=== PATIENT | female | born 1945 | race Hispanic/Latino ===

== ENCOUNTER 2018-02-11 11:48 | Emergency (ER) | payer MEDICARE, MEDICAID ==
--- NOTE | 2018-02-11 12:30 | RAD ---
RIGHT SHOULDER TWO VIEWS: History: Patient slipped in bathroom. Shoulder pain. FINDINGS: There is an anterior shoulder dislocation. There are arthritic changes of the shoulder seen. IMPRESSION: Anterior shoulder dislocation. POS: [facility]
[2018-02-11] MEDS ORDERED: HYDROcodone/Acetaminophen 5/325 mg Tablet ONE (12:36)
[2018-02-11] MEDS ORDERED: Morphine 4 MG/ML VIAL ONE (13:36)
[2018-02-11] MEDS ORDERED: Ondansetron ODT 4 MG TAB ONE (13:38)
--- NOTE | 2018-02-11 13:46 | CT ---
BRAIN CT WITHOUT IV CONTRAST: History: 72-year-old female with history of head injury after slipping in the bathroom. FINDINGS: No focal mass or midline shift. No intra or extraaxial hemorrhage. Mild sinus mucosal changes. IMPRESSION: No significant acute intracranial process. No mass or bleed. Minimal right supraorbital scalp swellin g. Mild sinus mucosal changes. POS: [facility]
--- NOTE | 2018-02-11 13:49 | CT ---
CT FACIAL BONES: Date: 02-11-18 Comparison: None. History: Injury. Slipped in the bathroom. Technique: Serial axial CT imaging at 2.5 mm intervals through the facial bones without contrast. Cor onal and sagittal reformatted imaging obtained. FINDINGS: Incompletely imaged soft tissue swelling is seen in the right supraorbital region. The frontal sinuses, ethmoid air cells, sphenoid sinuses, and maxillary sinuses demonstrate no signif icant mucosal disease. There is mild mucosal disease within the posterior ethmoid air cells on the le ft, the sphenoid sinus on the left and the maxillary sinus on the right. The nasal bones, the zygomatic arches, and the pterygoid plates are intact. The temporomandibular joints appear normally located. The mandible appears intact. There is moderate degenerative change involving the atlantoaxial interspace. The orbital floor and the medial orbital wall is intact bilaterally. No displaced facial bone fracture is noted. IMPRESSION: 1. No evidence for acute facial bone fracture. POS: [facility]
--- NOTE | 2018-02-11 13:59 | RAD ---
RIGHT HUMERUS 2 VIEWS: Date: 02/11/18 HISTORY: Injury. Fall. COMPARISON: None. FINDINGS: There is an anterior subcoracoid shoulder dislocation. Advanced degenerative changes of the elbow. IMPRESSION: Anterior subcoracoid shoulder dislocation. POS: [facility]
--- NOTE | 2018-02-11 14:01 | RAD ---
RIGHT ELBOW 4 VIEWS: Date: 02/11/18 HISTORY: Injury. Fall. COMPARISON: None. FINDINGS: There is moderate narrowing of the radiocapitellar and mild narrowing of the ulnar trochlear joint. N o acute displaced fracture is appreciated. No significant joint effusion. Osteophytes are present at the radial head, as well as of the radial notch at the ulna. IMPRESSION: No acute fracture. POS: [facility]
--- NOTE | 2018-02-11 14:21 | RAD ---
RIGHT SHOULDER TWO VIEWS: History: Shoulder injury. FINDINGS: There is anterior shoulder dislocation present. Bones appear demineralized. IMPRESSION: Anterior shoulder dislocation. POS: [facility]
--- NOTE | 2018-02-11 18:48 | RAD ---
FRONTAL VIEW RIGHT SHOULDERS: 02/11/2018 PROVIDED CLINICAL HISTORY: Post reduction. COMPARISON: Exam done earlier on the same date. FINDINGS: The proximal humerus more normally overlies the glenoid but the glenohumeral relationship is suboptim ally evaluated in the absence of a scapular Y or axillary view. Acromioclavicular joint osteoarthros is is redemonstrated. IMPRESSION: As above. POS: [facility]
== END 2018-02-11 17:30 | disposition home or self-care (01) ==
LOC: ERS 11:48
DX: S43.014A Anterior dislocation of right humerus, initial encounter (principal); E11.9 Type 2 diabetes mellitus without complications; E78.5 Hyperlipidemia, unspecified; Z79.899 Other long term (current) drug therapy; Z79.4 Long term (current) use of insulin; W19.XXXA Unspecified fall, initial encounter
CPT/HCPCS: 23650; 70450; 70486; 96374; 99152; 99153; J2270; Q0162

== ENCOUNTER 2018-04-12 07:15 | Outpatient (CLI) | payer MEDICARE, MEDICAID ==
--- NOTE | 2018-04-12 09:14 | MRI ---
MRI OF THE RIGHT SHOULDER WITHOUT CONTRAST: Indication: Right shoulder pain with history of right shoulder dislocation two months ago after slipp ing and falling. Technique: Multiplanar, multisequence MR images were obtained of the right shoulder without intraarti cular or IV contrast. Comparison: Radiographs of the right shoulder dated 02-01-18. FINDINGS: There are complete full thickness, full width tears of the supraspinatus, infraspinatus and subscapul malu with retraction of the tendons to the level of the glenoid head. There is moderate muscular atro phy of the supraspinatus and infraspinatus. There is mild muscular atrophy of the subscapularis. The teres minor is intact. There is a high grade partial thickness tear involving the intraarticular chevy ps tendon. The biceps tendon is medially subluxed within the mid to superior aspects of the bicipital groove. There is prominent tendinosis of the intraarticular course of the biceps tendon. There is pr ominent degenerative fraying of the superior glenoid labrum and biceps anchor. The visualized aspects of the inferior glenohumeral labral ligamentous complex appear roughly intact. There is some increas ed T2 signal seen involving the anterior aspect of the axillary pouch, likely reflective of some resi dual grade I sprain. Glenohumeral articular surface is preserved. There is no Hill-Sachs deformity de monstrated. There is moderate AC joint osteoarthrosis. There is a type II acromion. No os acromiale i s present. IMPRESSION: 1. Massive rotator cuff tear with moderate supraspinatus and infraspinatus muscular atrophy and mild subscapularis muscular atrophy. 2. Medial subluxation of the proximal long head of the biceps tendon with severe biceps tendinosis an d a high grade partial thickness tear of the intraarticular course of the biceps tendon. 3. Prominent degenerative fraying of the superior glenoid labrum and biceps anchor. 4. Some increased T2 signal involving the anterior aspect of the axillary pouch in the region of the anterior band of the inferior glenohumeral ligament, likely related to a grade I sprain. 5. Moderate AC joint osteoarthrosis. POS: [facility]
== END 2018-04-12 07:16 | disposition home or self-care (01) ==
LOC: BICMRI 07:15
PROVIDERS: ATTEND Orthopaedic Surgery
DX: M25.511 Pain in right shoulder (principal); M75.101 Unspecified rotator cuff tear or rupture of right shoulder, not specified as traumatic; M62.511 Muscle wasting and atrophy, not elsewhere classified, right shoulder; S43.081A Other subluxation of right shoulder joint, initial encounter; M75.21 Bicipital tendinitis, right shoulder; M19.011 Primary osteoarthritis, right shoulder; R93.7 Abnormal findings on diagnostic imaging of other parts of musculoskeletal system

== ENCOUNTER 2018-08-02 15:02 | Outpatient (CLI) | payer MEDICARE, MEDICAID ==
--- NOTE | 2018-08-02 16:11 | RAD ---
RIGHT HIP 2 VIEWS: Date: 08/03/17 HISTORY: Right hip pain for 3 weeks. FINDINGS/IMPRESSION: No fracture, dislocation, or other significant acute osseous abnormality. Mild degenerative changes. POS: [facility]
--- NOTE | 2018-08-02 16:12 | RAD ---
RIGHT KNEE 3 VIEWS: Date: 08/03/17 HISTORY: Anterior right knee pain without injury, pain for 3 weeks. FINDINGS/IMPRESSION: Mild tricompartment degenerative changes. Mild anterior nonspecific soft tissue swelling. No fracture , dislocation, or other significant acute osseous abnormality. POS: [facility]
--- NOTE | 2018-08-02 16:13 | RAD ---
LEFT HIP 2 VIEWS: Date: 08/03/17 HISTORY: Left hip pain for 3 weeks without injury. FINDINGS/IMPRESSION: Mild degenerative changes. No fracture, dislocation, or other acute process. POS: [facility]
== END 2018-08-02 15:03 | disposition home or self-care (01) ==
LOC: BICRAD 15:02
PROVIDERS: ATTEND Family Medicine
DX: M25.561 Pain in right knee (principal); M25.551 Pain in right hip; M25.552 Pain in left hip; M17.11 Unilateral primary osteoarthritis, right knee; M16.0 Bilateral primary osteoarthritis of hip

== ENCOUNTER 2018-08-19 10:07 | Outpatient (CLI) | payer MEDICARE, MEDICAID | END 2018-08-19 10:08 | disposition home or self-care (01) | LOC: BICMAMMO 10:07 | PROVIDERS: ATTEND Family Medicine | DX: Z12.31 Encounter for screening mammogram for malignant neoplasm of breast (principal); R92.1 Mammographic calcification found on diagnostic imaging of breast; N64.89 Other specified disorders of breast | CPT/HCPCS: 77063; 77067 ==

== ENCOUNTER 2019-11-20 11:39 | Outpatient (CLI) | payer MEDICARE, MEDICAID ==
--- NOTE | 2019-11-20 13:08 | MMO ---
Bilateral MAMMO Bilat Screen [facility]. CLINICAL HISTORY: Patient is 74 years old and is seen for screening. The patient has no family history of breast cancer. The patient has no personal history of cancer. VIEWS: The views performed were: bilateral craniocaudal with tomosynthesis and bilateral mediolateral oblique with tomosynthesis. FILMS COMPARED: The present examination has been compared to prior imaging studies performed at [facility] on 09/14/2014, 09/16/2015, 09/21/2016 and 08/19/2018. This study has been interpreted with the assistance of computer-aided detection. MAMMOGRAM FINDINGS: There are scattered fibroglandular densities. Finding 1: The left breast mass with calcification , likely fibroadenoma is stable. Finding 2: Benign calcifications are noted bilaterally. There are no suspicious masses, suspicious calcifications, or new areas of architectural distortion. IMPRESSION: THERE IS NO MAMMOGRAPHIC EVIDENCE OF MALIGNANCY. A ROUTINE FOLLOW-UP MAMMOGRAM IN 1 YEAR IS RECOMMENDED. THE RESULTS OF THIS EXAM WERE SENT TO THE PATIENT. ACR BI-RADS Category 2 - Benign finding MAMMOGRAPHY NOTE: 1. A negative mammogram report should not delay a biopsy if a dominant of clinically suspicious mass is present. 2. Approximately 10% to 15% of breast cancers are not detected by mammography. 3. Adenosis and dense breasts may obscure an underlying neoplasm. Reported by: SARAH TAVARES MD Electonically Signed: [id number]
== END 2019-11-20 11:40 | disposition home or self-care (01) ==
LOC: BICMAMMO 11:39
PROVIDERS: ATTEND Family Medicine
DX: Z12.31 Encounter for screening mammogram for malignant neoplasm of breast (principal)
CPT/HCPCS: 36415; 77063; 77067; 80053; 83036; 85025

== ENCOUNTER 2020-09-24 10:13 | Outpatient (CLI) | payer MEDICARE, MEDICAID | END 2020-09-24 10:14 | disposition home or self-care (01) | LOC: BICMAMMO 10:13 | PROVIDERS: ATTEND Family Medicine | DX: M85.89 Other specified disorders of bone density and structure, multiple sites (principal) | CPT/HCPCS: 77080 ==

== ENCOUNTER 2021-06-28 10:31 | Outpatient (CLI) | payer MEDICARE, MEDICAID | END 2021-06-28 10:32 | disposition home or self-care (01) | LOC: BICMAMMO 10:31 | PROVIDERS: ATTEND Family Medicine | DX: Z12.31 Encounter for screening mammogram for malignant neoplasm of breast (principal) | CPT/HCPCS: 77063; 77067 ==

== ENCOUNTER 2022-10-18 11:12 | Outpatient (CLI) | payer OTHER, MEDICAID | END 2022-10-18 11:13 | disposition home or self-care (01) | LOC: BICRAD 11:12 | PROVIDERS: ATTEND Family Medicine | DX: M54.50 Low back pain, unspecified (principal); E11.9 Type 2 diabetes mellitus without complications; M47.816 Spondylosis without myelopathy or radiculopathy, lumbar region | CPT/HCPCS: 36415; 72100; 80053; 80061; 81001; 83036; 85025; 87077; 87086; 87186 ==

== ENCOUNTER 2024-01-23 14:14 | Outpatient (CLI) | payer OTHER, MEDICAID | END 2024-01-23 14:15 | disposition home or self-care (01) | LOC: BICMAMMO 14:14 | PROVIDERS: ATTEND Family Medicine | DX: Z13.820 Encounter for screening for osteoporosis (principal); M85.89 Other specified disorders of bone density and structure, multiple sites; N95.9 Unspecified menopausal and perimenopausal disorder | CPT/HCPCS: 77080 ==

== ENCOUNTER 2024-06-16 10:30 | Outpatient (CLI) | payer OTHER, MEDICAID | END 2024-06-16 10:31 | disposition home or self-care (01) | LOC: BICRAD 10:30 | PROVIDERS: ATTEND Family Medicine | DX: J06.0 Acute laryngopharyngitis (principal); E11.9 Type 2 diabetes mellitus without complications | CPT/HCPCS: 36415; 71046; 80053; 80061; 82043; 83036; 85025 ==

== ENCOUNTER 2024-07-13 06:02 | Emergency (ER) | payer OTHER, MEDICAID ==
[2024-07-13] MEDS ORDERED: HYDROcodone/Acetaminophen 5/325 mg Tablet ONE (08:03)
[2024-07-13] MEDS ORDERED: Ibuprofen 200 MG TAB ONE (10:05)
== END 2024-07-13 09:55 | disposition home or self-care (01) ==
LOC: ERS 06:02
DX: S42.412A Displaced simple supracondylar fracture without intercondylar fracture of left humerus, initial encounter for closed fracture (principal); S59.902A Unspecified injury of left elbow, initial encounter; E11.9 Type 2 diabetes mellitus without complications; Z79.84 Long term (current) use of oral hypoglycemic drugs; Z79.4 Long term (current) use of insulin; W01.0XXA Fall on same level from slipping, tripping and stumbling without subsequent striking against object, initial encounter
CPT/HCPCS: 24530

== ENCOUNTER 2024-07-29 15:48 | Outpatient (CLI) | payer OTHER, MEDICAID ==
[2024-07-29 16:53] LABS: #Basophils 0.03 10x3/uL (0.0-0.2); %Basophils 0.4 % (0.0-1.0); %Eosinophils 2.1 % (0.0-10.0); %Monocytes 8.3 % (0.0-10.0); %Neutrophils 61.9 % (42.0-75.0); Hematocrit 34.7 % (36.0-47.0); Hemoglobin 11.5 g/dL (12.0-16.0); Mean Corpuscular HGB CONC 33.1 g/dL (32.0-36.0); Mean Corpuscular Hemoglobin 32.8 pg (27.0-31.0); Mean Corpuscular Volume 98.9 fL (78.0-98.0); Mean Platelet Volume 9.7 fL (7.4-10.4); Platelet Count 315 10x3/uL (130-400); RBC Distribution Width 12.8 % (11.5-14.5); Red Blood Cell (RBC) Count 3.51 mill/uL (4.20-5.40)
[2024-07-29 17:15] LABS: Anion Gap 13 mmol/L (10-20); BUN (Urea Nitrogen) 13 mg/dL (9.8-20.1); Calc. Creatinine Clearance 0 mL/min (70-130); Calcium 9.8 mg/dL (7.8-10.44); Carbon Dioxide 25 mmol/L (23-31); Chloride 103 mmol/L (98-107); Estimated GFR 92; Glucose 164 mg/dL (83-110); Potassium 4.3 mmol/L (3.5-5.1); Sodium 137 mmol/L (136-145)
== END 2024-07-29 15:49 | disposition home or self-care (01) ==
LOC: LABBT 15:48
PROVIDERS: ATTEND Orthopaedic Surgery
DX: Z01.818 Encounter for other preprocedural examination (principal); S42.402B Unspecified fracture of lower end of left humerus, initial encounter for open fracture; Z98.890 Other specified postprocedural states
CPT/HCPCS: 80048; 85025; 93005; 93010